=== PATIENT | female | born 1980 | race African-American/Black ===

== ENCOUNTER 2020-09-16 09:38 | Emergency (ER) | payer MEDICAID, OTHER, SELFPAY ==
[~2020-09-16] VITALS: Ht 160 cm; Wt 91.8 kg
[2020-09-16 09:41] VITALS: BP 158/104
[2020-09-16] MEDS ORDERED: CEFTRIAXONE 250 MG IM ONE (11:00)
[2020-09-16] MEDS ORDERED: AZITHROMYCIN 500 MG TABLET PO ONE (11:00)
[2020-09-16] MEDS ORDERED: CEFTRIAXONE 1,000 MG ONE (11:03)
[2020-09-16] MEDS ORDERED: AZITHROMYCIN 250 MG TABLET ONE ×2 (11:03→11:08)
[2020-09-16 11:12] LABS: CLUE CELLS NONE SEEN (NONE SEEN); WET PREP WBCS MANY (FEW)
== END 2020-09-16 11:43 | disposition home or self-care (01) ==
LOC: ED 10:59
DX: N89.8 Other specified noninflammatory disorders of vagina (principal)
CPT/HCPCS: 87210; 87491; 87591; 87808; 96372; 99283; J0696